=== PATIENT | male | born 1985 | race Caucasian/White ===

== ENCOUNTER 2017-04-02 09:08 | Emergency (ER) | payer MEDICAID, SELFPAY ==
[2017-04-02 09:09] VITALS: BP 147/116; PULSE 121; RESP 18; TEMP 36.3; BMI 21.4
--- NOTE | 2017-04-02 09:32 | EKG12_ITS ---
Test Reason : MEDICAL CLEARANCE Blood Pressure : / mmHG Vent. Rate : 098 BPM Atrial Rate : 098 BPM P-R Int : 154 ms QRS Dur : 092 ms QT Int : 328 ms P-R-T Axes : 076 075 068 degrees QTc Int : 418 ms Normal sinus rhythm Normal ECG Confirmed by LAURA YBARRA, AMARI ([id number]), marketing editor TAL CALLE ([id number] on 04/04/2017 1:53:52 PM Referred By: JONATHAN Confirmed By:AMARI SANCHEZ MD
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
[2017-04-02 10:11] LABS: Absolute Lymphocyte Count 1.44 X10^3/ul (0.83-4.51); Absolute Neutrophil Count 4.3 X10^3/uL (2.0-7.7); Basophil# 0.03 X10^3/uL; Basophil% 0.5 % (0-1); Eosinophil# 0.23 X10^3/uL; Eosinophils% 3.7 % (0-5); Hematocrit 42.7 % (40-54); Hemoglobin 14.4 g/dl (13.0-16.5); Lymphocyte # 1.44 X10^3/ul (4.0); Mean Corp Hgb Conc 33.7 g/gl (32-36); Mean Corpuscular Hgb 29.6 pg (27.0-32.0); Mean Corpuscular Volume 87.7 fL (80-94); Mean Platelet Vol. 10.1 fl (6.2-12.0); Monocyte# 0.25 X10^3/uL; Neutrophil # 4.29 X10^3/uL (2.7-7.7); Neutrophil % 68.6 % (47-70); Platelet Count 232 K/mm3 (150-450); RBC Distribution Width CV 14.1 % (11.6-14.6); RBC Distribution Width SD 45.4 fl (35.1-43.9); Red Blood Count 4.87 M/mm3 (4.6-6.2); White Blood Count 6.3 K/mm3 (4.4-11.0)
[2017-04-02 10:12] LABS: POSITIVE COUNT NO; POSITIVE DIFFERENTIAL NO; POSITIVE MORPHOLOGY NO
[2017-04-02 10:13] LABS: Color, Urine Yellow (Yellow); Glucose, Dipstick Normal (Normal); Ketone-Dipstick 5 mg/dl (Negative); Leukocyte Esterase-Dipstick 100 /ul (Negative); Nitrite-Dipstick Negative (Negative); Occult Blood-Urine 10 /ul (Negative); Protein-Dipstick 30 mg/dl (Negative); Specific Gravity, Urine 1.025 (1.002-1.030); Urine Bilirubin Dipstick Negative (Negative); Urine Clarity Sl. Cloudy (Clear); Urine Urobilinogen 1 mg/dl (Normal)
[2017-04-02 10:21] LABS: Bacteria 1+ /hpf (None Seen); Mucous, Urine 1+ /hpf (<or=2+); Red Blood Cells-Urine 0-5 SEEN /hpf (0-5); Squamous Epithelial Cells - UA 0-5 SEEN /hpf (0-5); White Blood Cells 10-25 SEEN /hpf (0-5)
[2017-04-02 10:30] LABS: Amphetamine Urine VISTA POSITIVE (<1000 ng/mL); Barbiturate Urine VISTA NEGATIVE (< 200 ng/mL); Benzodiazepine Urine VISTA NEGATIVE (< 200 ng/mL); Cocaine Urine VISTA NEGATIVE (< 300 ng/mL); Ecstacy Urine VISTA NEGATIVE (< 500 ng/mL); Methadone Urine VISTA NEGATIVE (< 300 ng/mL); PCP Urine VISTA NEGATIVE (< 25 ng/mL); THC Urine VISTA POSITIVE (< 50 ng/mL); Vista UDS pH Range 5
[2017-04-02 10:32] LABS: ALB/GLOB Ratio 0.9 RATIO (0.9-2.4); AST(SGOT) 25 U/L (15-37); Alanine Aminotransfer ALT/SGPT 35 U/L (16-61); Albumin, Serum 3.7 g/dL (3.2-5.0); Alkaline Phosphatase 77 U/L (45-117); Anion Gap 6 (5-15); BUN 13 mg/dL (7-18); BUN/Creat Ratio 12.4 RATIO (10-20); Calcium,Total 8.7 mg/dL (8.5-10.1); Chloride 109 mmol/L (98-107); Creatinine, Serum 1.05 mg/dL (0.70-1.30); EST Glomerular Filtration Rate 86 mL/min (>60); Est Glom Filt Rate - Afr Amer 105 mL/min (>60); Globulin 3.9 g/dL (2.2-4.2); Glucose 86 mg/dL (74-106); Potassium 3.9 mmol/L (3.5-5.1); Protein, Total 7.6 g/dL (6.4-8.2); Sodium Level 142 mmol/L (136-145); Thyroid Stim Hormone (TSH) 3.41 uIU/mL (0.358-3.74)
[2017-04-02 10:33] VITALS: BP 141/109; PULSE 99; RESP 18; O2SAT 99
[2017-04-02 10:36] LABS: Alcohol, Blood (Medical)-Serum < 3.0 mg/dL
[2017-04-02 11:02] VITALS: RESP 16
[2017-04-02 13:31] VITALS: BP 132/89; PULSE 91; RESP 18; O2SAT 100
[2017-04-02 16:40] LABS: Chlamydia Trachomatis by PCR Negative (Negative); Neisserai gonorrhoeae by PCR Negative (Negative); Probe Check PASS; Sample Adequacy Control PASS; Specimen Processing Control PASS
== END 2017-04-02 14:37 | disposition home or self-care (01) ==
PROVIDERS: Emergency Provider Emergency Medicine
DX: F32.9 Major depressive disorder, single episode, unspecified (principal); F12.90 Cannabis use, unspecified, uncomplicated; F15.90 Other stimulant use, unspecified, uncomplicated; Z72.89 Other problems related to lifestyle; Z72.0 Tobacco use
CPT/HCPCS: 36415; 80053; 80307; 80320; 81001; 84443; 85025; 87086; 87088; 87491; 87591; 93005; 99283; G0480

== ENCOUNTER 2017-04-05 08:49 | Outpatient (RCR) | payer MEDICAID, SELFPAY ==
--- NOTE | 2017-04-05 09:53 | BH.COMM ---
Communication Note - Communication with Client Communication Note: This therapist met with client to complete intake paperwork and answer client questions about IOP.
--- NOTE | 2017-04-05 15:50 | BH.SGPN ---
Service Group Progress Note - Session Psychotherapy Session #1 Date Open:: 04/05/17 Time Started:: 09:04 Time Stopped:: 10:00 Targeted Problem #:: 1 Type of Group:: Process Goal of Group:: The goal of today's group was to check-in with client's mood, stressors, and positives, review homework and introduce topic for the day. Client Response/Progress/Benefit:: Patient listened attentively to others, tended to be quiet. Patient appeared to be visibly anxious as evidenced by fidgeting with hands and feet. Patient reported he is feeling very anxious because it is his first day in the program. Also shared having some issues because he has to walk to all his appointments right now until his girlfriend moves back to the area. Pt shared this increases his pain because he has emphysema which worsens in cold weather. Patient seemed to benefit from sharing his thoughts and feelings as well as receiving support by peers. Eye Contact:: Fair Motor Activity:: Restless Appearance:: Casual Speech:: Appropriate Mood:: Anxious, Irritable, Depressed Affect:: Constricted Thoughts:: Linear, Logical, No evidence of hallucinations/delusions noted Staff Interventions:: Therapist used open-ended questions to elicit information about client's current stressors and mood state. Therapist was supportive by using active listening and reflection.
--- NOTE | 2017-04-05 16:08 | BH.MDN ---
Multi-Disciplinary Note - Note 30-min Individual Time Started:: 10:20 Date: 04/05/17 Time Stopped:: 10:45
--- NOTE | 2017-04-05 16:24 | BH.SGPN ---
Service Group Progress Note - Session Psychotherapy Session #3 Date Open:: 04/05/17 Time Started:: 11:24 Time Stopped:: 12:16 Targeted Problem #:: 1 Type of Group:: Functional Skills Development - 8 participants Goal of Group:: To rehearse resilient factors and identify ways to maintain resilience despite hardships and stressors. Staff Interventions:: Therapist led group in an activity in which group members were challenged to stay resilient despite various stressors and hardships added to activity. Therapist provided each group member with a stress ball and used stress ball as a tool to discuss factors of resilient personality. Therapist provided group members with a handout about the building blocks of resilience. Therapist provided support by using reflective listening.
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
--- NOTE | 2017-04-06 15:29 | BH.DR.ITP ---
Initial Treatment Plan - Patient Information Visit Information: ADMISSION DATE: EXPECTED LOS: 4-6 weeks Diagnoses:: Bipolar disorder - Problems/Symptoms Problem #1:: Mood symptoms Symptom:: Depression, recent suicidal ideation, anger, irritability Problem #2:: Anxiety Symptom:: rumination
--- NOTE | 2017-04-06 15:51 | BH.SGPN ---
Service Group Progress Note - Session Psychotherapy Session #3 Date Open:: 18 - 9 group members Time Started:: 11:30 Time Stopped:: 12:10 Targeted Problem #:: 1 Type of Group:: Functional Skills Development Goal of Group:: To identify specific barriers to an identified change clients would want to make and identify ways to overcome those barriers. Client Response/Progress/Benefit:: Client responded well to session, providing good insight to group discussion. Client shared making changes and overcoming barriers is difficult because it sometimes requires removing toxic people and can be overwhelming. Client did not identify a specific goal, but reported his usual barriers are negative thinking and his environment. Client helped the group identify strategies to overcome barriers such as reframing thoughts and looking at the evidence. Client appeared to benefit from using in the moment coping skills to manage anger as well as from developing strategies to overcome barriers. Client to continue IOP to promote mood stability and increase emotional regulation. Eye Contact:: Good Motor Activity:: Appropriate Appearance:: Casual Speech:: Appropriate Mood:: Anxious, Irritable - Irritable at the beginning of group, but able to regulate his emotions after taking a quick break. Affect:: Constricted Thoughts:: Linear, No evidence of hallucinations/delusions noted Staff Interventions:: Therapist facilitated discussion about what helped the group overcome challenges that came about during the experiential activity. Therapist utilized the activity as a tool in relating those experiences to ways to overcome barriers with challenges in their life when trying to make change. Therapist group into smaller groups and had them brainstorm ways to overcome certain barriers to their identified change. Therapist provided support by using reflective listening and providing feedback.
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
--- NOTE | 2017-04-09 14:11 | BH.MDN ---
Multi-Disciplinary Note - Note 45-min Individual Date: 04/09/17
--- NOTE | 2017-04-11 11:30 | BH.SGPN ---
Service Group Progress Note - Session Psychotherapy Session #1 Date Open:: 04/11/17 - 6 group members Time Started:: 09:02 Time Stopped:: 10:02 Targeted Problem #:: 1 Type of Group:: Process Goal of Group:: The goal of today's group was to check-in with client's mood, stressors, and positives and introduce topic for the day. Client Response/Progress/Benefit:: Client responded well to session, active participant and providing supportive statements to peers. Client reports feeling grateful today as client stated, I'm happy to be alive and to be thinking as positively as I am despite my situation. Client shared he has been utilizing self-care and setting boundaries with his girlfriend which client reports is beneficial to their relationship. Client stated his psychiatry appointment went well yesterday and client was prescribed Zoloft. Client appeared to benefit from supportive statements from peers and identifying positives. Client progressing as evidenced by his report of setting boundaries, but continues to struggle with dealing with people. Eye Contact:: Good Motor Activity:: Appropriate Appearance:: Casual Speech:: Appropriate Mood:: Euthymic Affect:: Constricted Thoughts:: Linear, No evidence of hallucinations/delusions noted Staff Interventions:: Therapist used open-ended questions to elicit information about client's current stressors and mood state. Therapist was supportive by using active listening and reflection. Therapist facilitated a mindfulness activity to promote emotional well-being and calmness.
--- NOTE | 2017-04-11 11:38 | BH.SGPN_ITS ---
Service Group Progress Note - Session Psychotherapy Session #1 Date Open:: 04/11/17 - 6 group members Time Started:: 09:02 Time Stopped:: 10:02 Targeted Problem #:: 1 Type of Group:: Process Goal of Group:: The goal of today's group was to check-in with client's mood, stressors, and positives and introduce topic for the day. Client Response/Progress/Benefit:: Client responded well to session, active participant and providing supportive statements to peers. Client reports feeling grateful today as client stated, I'm happy to be alive and to be thinking as positively as I am despite my situation. Client shared he has been utilizing self-care and setting boundaries with his girlfriend which client reports is beneficial to their relationship. Client stated his psychiatry appointment went well yesterday and client was prescribed Zoloft. Client appeared to benefit from supportive statements from peers and identifying positives. Client progressing as evidenced by his report of setting boundaries, but continues to struggle with ?dealing with people.? Eye Contact:: Good Motor Activity:: Appropriate Appearance:: Casual Speech:: Appropriate Mood:: Euthymic Affect:: Constricted Thoughts:: Linear, No evidence of hallucinations/delusions noted Staff Interventions:: Therapist used open-ended questions to elicit information about client's current stressors and mood state. Therapist was supportive by using active listening and reflection. Therapist facilitated a mindfulness activity to promote emotional well-being and calmness.
--- NOTE | 2017-04-11 15:50 | BH.SGPN ---
Service Group Progress Note - Session Psychotherapy Session #2 Date Open:: 04/11/17 Time Started:: 10:20 Time Stopped:: 11:13 Targeted Problem #:: 1 Type of Group:: Illness Management - 7 group members Goal of Group:: To identify within self what is keeping client trapped from achieving better quality of life. Client Response/Progress/Benefit:: Client listened attentively to others in contributed to discussion. Client connected with the quote recognizing that there are a lot of things that he does that keeps to himself from moving forward. Client identified negative thinking to be one of the most impactful things that can hold him back from connecting with others and moving towards progress. Client identified several thoughts that he recognizes holds him back. He reported a couple thoughts are: Stupidity [place] and I am not worth it. Client able to connect how his thoughts can impact the way that he acts and feels. Seemed to benefit from increasing awareness of how his thought patterns can be negatively impact his ability to make progress. Eye Contact:: Fair Motor Activity:: Appropriate Appearance:: Casual Speech:: Appropriate Mood:: Irritable, Depressed Affect:: Congruent Thoughts:: Linear, Logical, No evidence of hallucinations/delusions noted Staff Interventions:: Therapist facilitated discussion about what is keeping client?s stuck from moving toward mental wellness. Therapist assisted clients in connecting how thoughts can contribute to keeping clients stuck. Therapist led discussion about barriers clients face from making changes to help one move forward. Therapist provided support by using active listening and giving feedback to others. Psychotherapy Session #3 Date Open:: 04/11/17 Time Started:: 11:20 Time Stopped:: 12:12 Targeted Problem #:: 1 Type of Group:: Functional Skills Development - 6 group members Goal of Group:: To identify what client can do to release self from those things that are trapping them to find more peace and quality in everyday life. Eye Contact:: Fair Motor Activity:: Appropriate Appearance:: Casual Speech:: Appropriate Mood:: Euthymic Affect:: Congruent Thoughts:: Linear, Logical, No evidence of hallucinations/delusions noted Staff Interventions:: Therapist provided psychoeducation about the depression and anxiety maintenance cycle. Therapist provided group members with a worksheet in which each group member identified a negative thought and how that negative thought is impacting ability to function. Therapist assisted the group with reframing and challenging negative thought identified. Helped the group identify the positive impact of being able to challenge and reframe negative thoughts.
--- NOTE | 2017-04-12 12:44 | BH.MTP ---
Master Treatment Plan - Patient Information Program Physician:: Dr. Mccain Primary Therapist:: Iwona Pope, [facility] - Psychiatric Diagnoses Psychiatric Diagnoses:: Major disorder not otherwise specified-likely bipolar disorder. Rule out substance-induced mood disorder. PTSD. Anxiety unspecified. Cannabis use disorder. Nicotine use disorder Diagnosis Code(s):: F 32.9 - Estimated LOS Estimated LOS (in weeks):: 6 Problem/Goal #1 - Problem/Goal #1 Stated Goal:: Client will reduce depression, feelings of hopelessness, and suicidal ideation due to Major Depressive Disorder through Intensive Outpatient Program. Description of Barriers: Pt currently is staying in a homeless senior living and not having his basic needs met can be a barrier to treatment. Pt's emotional dysregulation, anger, negative thoughts, distorted thought patterns, and ruminations can be barriers to treatment progress. Functional Impact: Pt recently at [facility] emergency room for SI with plan to run into traffic. Pt's multiple life stressors contributed to pt living in his car for several months, just recently started staying at a homeless senior living. Pt's poor emotional regulation impact interpersonal relationships due to quick anger response. Pt's depressive symptoms contribute to increased negative thought patterns, decreased motivation, poor concentration, isolation which all make it more difficult to complete daily tasks. Pt's mental health symptoms also contribute to pt not being able to keep employment. Goal Relevant Strengths/Supports: Pt is resilient and expresses motivation to get better. Pt's girlfriend is a positive support for patient. - Objectives Objective #1 Stated Objective: Client will identify and replace 2-3 negative thinking patterns that reinforce depressive symptoms. Interventions: Therapist will assist client in developing an awareness of the cognitive messages that reinforce depressive thinking. Therapist will also assist client in challenging negative thinking patterns. Discharge Criteria: Client will have achieved this goal when can identify at least 2 negative thinking patterns, replace negative thinking with more positive, affirmative messages and state no longer having thoughts of hurting self. Target Date: 05/17/17 Review Date: 05/03/17 Objective #2 Stated Objective: Client will identify 3-5 physical warning signs of anger and 3-5 ways to calm and manage anger. Interventions: Therapist will assist client with identifying situations, thoughts, feelings, and actions associated with moments of anger, irritation, or disappointment. Through individual therapy and group work will help client explore warning signs to anger and ager management strategies. Discharge Criteria: Client will have met this goal when can identify at least 3 anger triggers and 3 healthy coping skills to help manage extreme emotions. Target Date: 05/17/17 Review Date: 05/03/17 Problem/Goal #2 - Problem/Goal #2 Stated Goal:: Stabilize anxiety level while increasing ability to function on daily basis. Description of Barriers: Pt currently is staying in a homeless senior living and not having his basic needs met can be a barrier to treatment. Pt's emotional dysregulation, anger, negative thoughts, distorted thought patterns, and ruminations can be barriers to treatment progress. Functional Impact: Pt recently at [facility] emergency room for SI with plan to run into traffic. Pt's multiple life stressors contributed to pt living in his car for several months, just recently started staying at a homeless senior living. Pt's poor emotional regulation impact interpersonal relationships due to quick anger response. Pt's depressive symptoms contribute to increased negative thought patterns, decreased motivation, poor concentration, isolation which all make it more difficult to complete daily tasks. Pt's mental health symptoms also contribute to pt not being able to keep employment. Goal Relevant Strengths/Supports: Pt is resilient and expresses motivation to get better. Pt's girlfriend is a positive support for patient. - Objectives Objective #1 Stated Objective: Client will learn and implement 2-3 calming skills to reduce overall anxiety and manage anxiety symptoms. Interventions: Therapist will teach client calming/relaxation skills and how to apply these skills to everyday life. Discharge Criteria: Client will have achieved this goal when can verbalize at least 2 calming strategies and have practiced techniques to help reduce anxiety. Target Date: 05/17/17 Review Date: 05/02/17
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
--- NOTE | 2017-04-19 11:36 | BH.SGPN ---
Service Group Progress Note - Session Psychotherapy Session #1 Date Open:: 04/19/17 Time Started:: 09:06 Time Stopped:: 10:20 Targeted Problem #:: 1 Type of Group:: Process - 9 participants Goal of Group:: The goal of today's group was to check-in with client's mood, stressors, and positives, review homework and introduce topic for the day. Staff Interventions:: Therapist used open-ended questions to elicit information about client's current stressors and mood state. Therapist was supportive by using active listening and reflection.
--- NOTE | 2017-04-19 13:34 | BH.SGPN_ITS ---
Service Group Progress Note - Session Psychotherapy Session #2 Date Open:: 04/19/17 - 10 group members Time Started:: 10:25 Time Stopped:: 11:15 Targeted Problem #:: 1 Type of Group:: Illness Management Goal of Group:: To increase understanding of importance of boundaries and the different ways of setting boundaries (permeable, rigid, and flexible). Client Response/Progress/Benefit:: Client responded somewhat well to session, appeared to be listening per eye contact, but appeared agitated and distracted. Client listened as the group identified the characteristics of each boundary type as well as the pros and cons. Client shared belief being rigid helps protect you from ?stupid people.?. Client appeared to benefit from learning the importance of boundary setting. Progress noted as client is learning healthy coping skills, but continues to struggle with implementing emotional regulation skills. Eye Contact:: Fair Motor Activity:: Restless Speech:: Appropriate Mood:: Anxious, Irritable Affect:: Flat Thoughts:: Racing, No evidence of hallucinations/delusions noted Staff Interventions:: Therapist facilitated group discussion about defining boundaries. Therapist led discussion about importance of boundaries, assisting group members with identifying the impact of healthy and unhealthy boundaries. Therapist educated the group about the three different ways of setting boundaries and led discussion about each one. Therapist assisted clients with identifying the costs and benefits to the three different styles of boundary setting and how each style can impact mental health as well as relationships. Psychotherapy Session #3 Date Open:: 04/19/17 - 9 group members Time Started:: 11:25 Time Stopped:: 12:20 Targeted Problem #:: 1 Type of Group:: Functional Skills Development Goal of Group:: Increase awareness of current boundary style, identifying impact current way of setting boundaries has on mental health as well as relationships. Client Response/Progress/Benefit:: Client responded somewhat well to session, agitated, but participating. Client process his boundary type with the group, sharing ?it?s all about yourself, you have to take care of you first.? Based on client?s description of his boundaries, he comes across as flexible by letting people come into his life, but client is actually rigid and is not forgiving sharing ?it?s up to them, if they burn the bridge it?s not my fault.? Client stated he has learned throughout his life that he cannot trust people. Client appeared to benefit from increasing awareness of how his boundaries impact client's mental health and relationships. Client to continue IOP to prevent decompensation and increase anger management skills. Eye Contact:: Fair Motor Activity:: Restless Appearance:: Casual Speech:: Rapid, Other - loud Mood:: Irritable Affect:: Congruent Thoughts:: Racing, No evidence of hallucinations/delusions noted Staff Interventions:: Therapist provided the group member with a wide array of supplies, asking each group member to create a castle that would represent the boundaries they currently have in place. The expressive activity was used as a tool to help increase client?s self-awareness of their boundaries. Therapist processed each group member?s castle, inquiring what style the group member currently uses most frequently and how current boundary style impacts his/her mental health and relationships. Therapist provided support by using reflective listening and giving feedback.
--- NOTE | 2017-04-20 11:18 | BH.SGPN ---
Service Group Progress Note - Session Psychotherapy Session #2 Date Open:: 04/20/17 Time Started:: 10:20 Time Stopped:: 11:10 Targeted Problem #:: 1 Type of Group:: Illness Management - 7 participants Psychotherapy Session #3 Date Open:: 04/20/17 Time Started:: 11:15 Time Stopped:: 12:08 Targeted Problem #:: 1 Type of Group:: Functional Skills Development - 5 participants
--- NOTE | 2017-04-20 14:14 | BH.MDN ---
Multi-Disciplinary Note - Note 30-min Individual Date: 04/20/17 Thoughts:: Linear, No evidence of hallucinations/delusions noted
--- NOTE | 2017-04-25 12:06 | BH.SGPN ---
Service Group Progress Note - Session Psychotherapy Session #1 Date Open:: 04/25/17 Time Started:: 09:03 Time Stopped:: 10:03 Targeted Problem #:: 1 Type of Group:: Process - 7 group members Goal of Group:: The goal of today's group was to check-in with client's mood, stressors, and positives, review homework and introduce topic for the day. Client Response/Progress/Benefit:: Client reported he had a really bad weekend because his girlfriend had a miscarriage on Sunday. Client expressed still trying to process everything because it happened so fast and the only had known for less than 2 weeks that she was . Client reported feeling sad this morning but recognizes its importance for him to get out of bed and not use sleep as his coping skill which she had done for a couple days. Client seemed to benefit from support from peers. Eye Contact:: Fair Motor Activity:: Restless Appearance:: Casual Speech:: Appropriate Mood:: Depressed Affect:: Flat Thoughts:: Linear, No evidence of hallucinations/delusions noted Staff Interventions:: Therapist used open-ended questions to elicit information about client's current stressors and mood state. Therapist was supportive by using active listening and reflection.
--- NOTE | 2017-04-25 12:45 | BH.MTP_ITS ---
Master Treatment Plan - Patient Information Program Physician:: Dr. Mccain Primary Therapist:: Iwona Pope, [facility] - Psychiatric Diagnoses Psychiatric Diagnoses:: Major disorder not otherwise specified-likely bipolar disorder. Rule out substance-induced mood disorder. PTSD. Anxiety unspecified. Cannabis use disorder. Nicotine use disorder Diagnosis Code(s):: F 32.9 - Estimated LOS Estimated LOS (in weeks):: 6 Problem/Goal #1 - Problem/Goal #1 Stated Goal:: Client will reduce depression, feelings of hopelessness, and suicidal ideation due to Major Depressive Disorder through Intensive Outpatient Program. Description of Barriers: Pt currently is staying in a homeless alf and not having his basic needs met can be a barrier to treatment. Pt's emotional dysregulation, anger, negative thoughts, distorted thought patterns, and ruminations can be barriers to treatment progress. Functional Impact: Pt recently at [facility] emergency room for SI with plan to run into traffic. Pt's multiple life stressors contributed to pt living in his car for several months, just recently started staying at a homeless alf. Pt's poor emotional regulation impact interpersonal relationships due to quick anger response. Pt's depressive symptoms contribute to increased negative thought patterns, decreased motivation, poor concentration, isolation which all make it more difficult to complete daily tasks. Pt's mental health symptoms also contribute to pt not being able to keep employment. Goal Relevant Strengths/Supports: Pt is resilient and expresses motivation to get better. Pt's girlfriend is a positive support for patient. - Objectives Objective #1 Stated Objective: Client will identify and replace 2-3 negative thinking patterns that reinforce depressive symptoms. Interventions: Therapist will assist client in developing an awareness of the cognitive messages that reinforce depressive thinking. Therapist will also assist client in challenging negative thinking patterns. Discharge Criteria: Client will have achieved this goal when can identify at least 2 negative thinking patterns, replace negative thinking with more positive , affirmative messages and state no longer having thoughts of hurting self. Target Date: 05/17/17 Review Date: 05/03/17 Objective #2 Stated Objective: Client will identify 3-5 physical warning signs of anger and 3 -5 ways to calm and manage anger. Interventions: Therapist will assist client with identifying situations, thoughts, feelings, and actions associated with moments of anger, irritation, or disappointment. Through individual therapy and group work will help client explore warning signs to anger and ager management strategies. Discharge Criteria: Client will have met this goal when can identify at least 3 anger triggers and 3 healthy coping skills to help manage extreme emotions. Target Date: 05/17/17 Review Date: 05/03/17 Problem/Goal #2 - Problem/Goal #2 Stated Goal:: Stabilize anxiety level while increasing ability to function on daily basis. Description of Barriers: Pt currently is staying in a homeless alf and not having his basic needs met can be a barrier to treatment. Pt's emotional dysregulation, anger, negative thoughts, distorted thought patterns, and ruminations can be barriers to treatment progress. Functional Impact: Pt recently at [facility] emergency room for SI with plan to run into traffic. Pt's multiple life stressors contributed to pt living in his car for several months, just recently started staying at a homeless alf. Pt's poor emotional regulation impact interpersonal relationships due to quick anger response. Pt's depressive symptoms contribute to increased negative thought patterns, decreased motivation, poor concentration, isolation which all make it more difficult to complete daily tasks. Pt's mental health symptoms also contribute to pt not being able to keep employment. Goal Relevant Strengths/Supports: Pt is resilient and expresses motivation to get better. Pt's girlfriend is a positive support for patient. - Objectives Objective #1 Stated Objective: Client will learn and implement 2-3 calming skills to reduce overall anxiety and manage anxiety symptoms. Interventions: Therapist will teach client calming/relaxation skills and how to apply these skills to everyday life. Discharge Criteria: Client will have achieved this goal when can verbalize at least 2 calming strategies and have practiced techniques to help reduce anxiety. Target Date: 05/17/17 Review Date: 05/02/17
--- NOTE | 2017-04-25 13:59 | BH.SGPN_ITS ---
Service Group Progress Note - Session Psychotherapy Session #2 Date Open:: 04/25/17 group members Time Started:: 10:17 Time Stopped:: 11:15 Targeted Problem #:: 1 Type of Group:: Illness Management Goal of Group:: To increase understanding of what stress is, identify current life stressors, and connect impact stressors have on mental health. Client Response/Progress/Benefit:: Client responded well to session, quiet, but participating when prompted. Client appeared to connect with the quote sharing, ?what matters is how we respond to stress.? Client helped the group process eustress versus unhealthy, chronic stress. Client shared some stress is good as it can increase awareness and motivation. However, client expressed anxiety and depression can increase the change of having chronic stress which negatively impacts mental and physical health. Client identified his stressors as insecurities, homelessness, relationships, and ?stupid people.? Client stated, ? encounters with stupid people? is often what ?sends me over the edge.? With therapist elicitation, client acknowledged he can better manage his stress to that when his interactions with others is unpleasant he can still cope. Client shared when his stress is too high he becomes angry and has increased crying spells. Client appeared to benefit from gaining awareness of his personal stressors and how stress impacts mental health. Client seems to be progressing as shown by his increases insight, but can continue to benefit from implementing impulse control strategies. Eye Contact:: Poor Motor Activity:: Restless Appearance:: Casual Speech:: Soft Mood:: Irritable, Dysthymic Affect:: Flat Thoughts:: Linear, No evidence of hallucinations/delusions noted Staff Interventions:: Therapist facilitated discussion about stress. Therapist facilitated an activity in which group members were asked to identify various stressors they have in their life currently. Therapist instructed group members to indicate if certain stressors were larger than others. Therapist led processing of each member?s stress jar and helped them connect impact the stress has on their mental health. Psychotherapy Session #3 Date Open:: 04/25/17 group members Time Started:: 11:25 Time Stopped:: 12:15 Targeted Problem #:: 1 Type of Group:: Functional Skills Development Goal of Group:: To identify what stressors have control over and what stressors have no control over. Another goal was to increase repertoire of healthy strategies to help manage stress. Client Response/Progress/Benefit:: Client responded well to session, engaged in activity and discussion. Client appeared to connect with the activity stating, ? you need teamwork and different perspectives to manage stress.? Client shared it is important to focus on stressors in his control rather than ?waste? energy trying to manage stressors he cannot change. Client helped the group develop stress management strategies including communicating emotions with supports, being aware of warning signs, taking small steps, and deep breathing. Client appeared to benefit from increasing his repertoire of stress reduction techniques as well as using in the moment coping skills. Client seems to be progressing as shown by his report of increased awareness of stressors, but can continue to benefit from utilizing healthy coping skills proactively. Eye Contact:: Good Motor Activity:: Appropriate Appearance:: Casual Speech:: Appropriate Mood:: Euthymic Affect:: Full - smiling and laughing with peers Thoughts:: Linear, No evidence of hallucinations/delusions noted Staff Interventions:: Therapist facilitated discussion about control versus no control and helped group members connect the concept to stressors. Therapist led discussion about importance of putting forth more energy on those stressors they can control. Therapist led an activity aimed at inducing stress to help clients use in the moment coping strategies and support. Therapist facilitated brainstorming of strategies to help manage stress level. Therapist provided support by using active listening and providing feedback.
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
--- NOTE | 2017-04-26 14:17 | BH.SGPN ---
Service Group Progress Note - Session Psychotherapy Session #2 Date Open:: 04/26/17 group members Time Started:: 10:12 Time Stopped:: 11:06 Targeted Problem #:: 1 Type of Group:: Illness Management Goal of Group:: To increase understanding of mindfulness and explore the benefits of mindfulness and what thoughts are prohibiting group members to stay in the present. Client Response/Progress/Benefit:: Client responded somewhat well to session, quiet and irritable, but participating in mindfulness activities. Client identified mindfulness as being in the moment. Client helped group identify the benefits of mindfulness such as less anxiety and better physical health. Client connected with peers on the topic of mindlessness or autopilot and how ones thoughts can impact mood and behavior. Client reported he can utilize mindfulness in his daily life to reduce stress. Client appeared to benefit from learning more about the benefits of mindfulness and learning new mindfulness skills. Client showing progress with utilizing in the moment coping strategies to reduce agitation in group, but can continue to benefit from being aware of how his tone of voice and remarks impact others in the group as client made a comment that upset a peer. Eye Contact:: Fair Motor Activity:: Restless - AEB leg shaking Appearance:: Casual Speech:: Appropriate Mood:: Irritable Affect:: Constricted Thoughts:: Linear, No evidence of hallucinations/delusions noted Staff Interventions:: Therapist provided each group member with a worksheet to complete that asked questions about possible stressors and overwhelming thoughts that take up their attention and assist client in redirecting thoughts by completing an activity. Therapist led the processing of the worksheet and activity, helping clients connect how negative thoughts can impact them. Therapist provided support by using active listening and providing feedback. Psychotherapy Session #3 Date Open:: 04/26/17 - 6 group members Time Started:: 11:25 Time Stopped:: 12:20 Targeted Problem #:: 1 Type of Group:: Functional Skills Development Goal of Group:: To identify the impact that negative thinking patterns has had on group members lives and how using mindfulness techniques and coping strategies can assist group members in managing overwhelming thoughts and feelings. Client Response/Progress/Benefit:: Client responded somewhat well to session, restless and appeared distracted, but participating when promoted. Client participated in the discussion of reason mind, emotion mind, and jones mind and shared when one uses emotion mind you act on impulse. Client created a visual reminder of mindfulness skills including 5-4-3-2-1, deep breathing, and several personal statements to encourage client to live in the moment. Client appeared to benefit from increasing awareness of the benefits of jones mind. Client to continue IOP to prevent decompensation and promote emotional regulation. Eye Contact:: Avoidant Motor Activity:: Restless - AEB leg shaking Appearance:: Casual Speech:: Rapid Mood:: Irritable Affect:: Constricted Thoughts:: Racing, No evidence of hallucinations/delusions noted Staff Interventions:: Therapist facilitated discussion about mindfulness and the benefits mindfulness can have. Therapist led group in an experiential activity in which clients would practice techniques such as breathing mindfully, and body scans. Therapist led the processing of the activity and assisted clients in connecting how when faced with overwhelming thoughts or negative self-talk can be disruptive to daily functioning.
--- NOTE | 2017-04-27 14:21 | BH.SGPN_ITS ---
Service Group Progress Note - Session Psychotherapy Session #2 Date Open:: 04/26/17 group members Time Started:: 10:12 Time Stopped:: 11:06 Targeted Problem #:: 1 Type of Group:: Illness Management Goal of Group:: To increase understanding of mindfulness and explore the benefits of mindfulness and what thoughts are prohibiting group members to stay in the present. Client Response/Progress/Benefit:: Client responded somewhat well to session, quiet and irritable, but participating in mindfulness activities. Client identified mindfulness as ?being in the moment.? Client helped group identify the benefits of mindfulness such as less anxiety and better physical health. Client connected with peers on the topic of ?mindlessness? or autopilot and how one?s thoughts can impact mood and behavior. Client reported he can utilize mindfulness in his daily life to reduce stress. Client appeared to benefit from learning more about the benefits of mindfulness and learning new mindfulness skills. Client showing progress with utilizing in the moment coping strategies to reduce agitation in group, but can continue to benefit from being aware of how his tone of voice and remarks impact others in the group as client made a comment that upset a peer. Eye Contact:: Fair Motor Activity:: Restless - AEB leg shaking Appearance:: Casual Speech:: Appropriate Mood:: Irritable Affect:: Constricted Thoughts:: Linear, No evidence of hallucinations/delusions noted Staff Interventions:: Therapist provided each group member with a worksheet to complete that asked questions about possible stressors and overwhelming thoughts that take up their attention and assist client in redirecting thoughts by completing an activity. Therapist led the processing of the worksheet and activity, helping client?s connect how negative thoughts can impact them. Therapist provided support by using active listening and providing feedback. Psychotherapy Session #3 Date Open:: 04/26/17 - 6 group members Time Started:: 11:25 Time Stopped:: 12:20 Targeted Problem #:: 1 Type of Group:: Functional Skills Development Goal of Group:: To identify the impact that negative thinking patterns has had on group member?s lives and how using mindfulness techniques and coping strategies can assist group members in managing overwhelming thoughts and feelings. Client Response/Progress/Benefit:: Client responded somewhat well to session, restless and appeared distracted, but participating when promoted. Client participated in the discussion of reason mind, emotion mind, and jones mind and shared when one uses emotion mind ?you act on impulse.? Client created a visual reminder of mindfulness skills including 5-4-3-2-1, deep breathing, and several personal statements to encourage client to live in the moment. Client appeared to benefit from increasing awareness of the benefits of jones mind. Client to continue IOP to prevent decompensation and promote emotional regulation. Eye Contact:: Avoidant Motor Activity:: Restless - AEB leg shaking Appearance:: Casual Speech:: Rapid Mood:: Irritable Affect:: Constricted Thoughts:: Racing, No evidence of hallucinations/delusions noted Staff Interventions:: Therapist facilitated discussion about mindfulness and the benefits mindfulness can have. Therapist led group in an experiential activity in which client?s would practice techniques such as breathing mindfully , and body scans. Therapist led the processing of the activity and assisted clients in connecting how when faced with overwhelming thoughts or negative self -talk can be disruptive to daily functioning.
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
--- NOTE | 2017-05-02 12:10 | BH.SGPN ---
Service Group Progress Note - Session Psychotherapy Session #1 Date Open:: 18 - 8 group members Time Started:: 09:06 Time Stopped:: 10:15 Targeted Problem #:: 1 Type of Group:: Process Goal of Group:: The goal of today's group was to check-in with client's mood, stressors, and positives, and review homework. Client Response/Progress/Benefit:: Client responded somewhat well to session, agitated, but actively listening to peers. Client reports feeling pissed off today as client is still living [facility] without any progress moving up the housing list. Client expressed he is frustrated with the system and workers they are running me around in circles. Therapist and client discussed how focusing on therapy and managing emotions is extremely challenging if one's basic needs are not met. Client reported himself from the halfway and cooling off will be most beneficial for his mental health today. Client appeared to benefit from verbalizing his emotions and receiving supportive statements from peers. Client to contact [employer] regarding housing today and continue IOP to prevent decompensation. Eye Contact:: Intense Motor Activity:: Restless Appearance:: Casual Speech:: Rapid - inappropriate language at times Mood:: Irritable, Other - agitated Affect:: Congruent Thoughts:: Logical, No evidence of hallucinations/delusions noted Staff Interventions:: Therapist used open-ended questions to elicit information about client's current stressors and mood state. Therapist was supportive by using active listening and reflection. Therapist validated client's emotions and allowed client to vent about recent housing issues. Therapist to follow up with resources for client.
--- NOTE | 2017-05-02 12:23 | BH.SGPN_ITS ---
Service Group Progress Note - Session Psychotherapy Session #1 Date Open:: 18 - 8 group members Time Started:: 09:06 Time Stopped:: 10:15 Targeted Problem #:: 1 Type of Group:: Process Goal of Group:: The goal of today's group was to check-in with client's mood, stressors, and positives, and review homework. Client Response/Progress/Benefit:: Client responded somewhat well to session, agitated, but actively listening to peers. Client reports feeling pissed off today as [facility] without any progress moving up the housing list. Client expressed he is frustrated with the system and workers they are running me around in circles. Therapist and client discussed how focusing on therapy and managing emotions is extremely challenging if one's basic needs are not met. Client reported [facility] and cooling off will be most beneficial for his mental health today. Client appeared to benefit from verbalizing his emotions and receiving supportive statements from peers. Client to contact [employer] regarding housing today and continue IOP to prevent decompensation. Eye Contact:: Intense Motor Activity:: Restless Appearance:: Casual Speech:: Rapid - inappropriate language at times Mood:: Irritable, Other - agitated Affect:: Congruent Thoughts:: Logical, No evidence of hallucinations/delusions noted Staff Interventions:: Therapist used open-ended questions to elicit information about client's current stressors and mood state. Therapist was supportive by using active listening and reflection. Therapist validated client's emotions and allowed client to vent about recent housing issues. Therapist to follow up with resources for client.
--- NOTE | 2017-05-03 14:18 | BH.MDN ---
Multi-Disciplinary Note - Note 30-min Individual Date: 05/03/17
--- NOTE | 2017-05-03 15:34 | BH.SGPN ---
Service Group Progress Note - Session Psychotherapy Session #3 Date Open:: 05/03/17 Time Started:: 11:20 Time Stopped:: 12:10 Targeted Problem #:: 1 Type of Group:: Functional Skills Development - 7 participants Goal of Group:: To identify specific barriers to an identified change clients would want to make and identify ways to overcome those barriers. Staff Interventions:: Therapist facilitated discussion about what helped the group overcome challenges that came about during the experiential activity. Therapist utilized the activity as a tool in relating those experiences to ways to overcome barriers with challenges in their life when trying to make change. Therapist group into smaller groups and had them brainstorm ways to overcome certain barriers to their identified change. Therapist provided support by using reflective listening and providing feedback.
[2017-05-25 15:38] VITALS: BP 117/72; PULSE 82; RESP 12
== END 2017-05-05 23:59 ==
LOC: BHIOP 08:49
PROVIDERS: Visit Provider Psychiatry & Neurology Psychiatry
DX: F32.9 Major depressive disorder, single episode, unspecified (principal); F43.10 Post-traumatic stress disorder, unspecified; F41.9 Anxiety disorder, unspecified; F12.20 Cannabis dependence, uncomplicated; F17.210 Nicotine dependence, cigarettes, uncomplicated
CPT/HCPCS: 90836; 99204; H0035; H2012; H2020; T1002; 90832; 90834

== ENCOUNTER 2017-05-08 09:00 | Outpatient (RCR) | payer MEDICAID, SELFPAY ==
[2017-05-06 00:14] VITALS: PULSE 82; RESP 12
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
--- NOTE | 2017-05-08 15:45 | BH.COMM ---
Communication Note - Communication with Client Communication Note: Call to [facility] to check on status of pt. Per Jane pt has not shown for admission. Call and VM left with patient regarding his status. Phoned fiance at [facility] who states that she is not at the prison. Phone to [facility] which he reportedly was staying. Per staff he no longer lives there. Pt denied any active suicidal ideations, plan, or intent when he left [facility] this afternoon therefore was not held agaisnt will or police notified. Pt was future-oriented and agreeable to voluntary admission for treatment. Due to not following through with plan I'm Fearful that if symptoms are not addressed they will worsen to the point of active SI. Left message with staff at [facility] to have fiance call if she enters prison. Call to [facility]. Gave them information regrding pt to conduct wellness check.
--- NOTE | 2017-05-08 16:00 | BH.COMM_ITS ---
Communication Note - Communication with Client Communication Note: Call to Jane Cordon to check on status of pt. Per Jane pt has not shown for admission. Call and VM left with patient regarding his status. Phoned fiance at [facility] who states that she is not at the skilled nursing. Phone to [facility] [employer] which he reportedly was staying. Per staff he no longer lives there. Pt denied any active suicidal ideations, plan, or intent when he left [facility] this afternoon therefore was not held agaisnt will or police notified. Pt was future-oriented and agreeable to voluntary admission for treatment. Due to not following through with plan I'm Fearful that if symptoms are not addressed they will worsen to the point of active SI. Left message with staff at [facility] to have fiance call if she enters skilled nursing. Call to [facility]. Gave them information regrding pt to conduct wellness check.
--- NOTE | 2017-05-09 08:10 | BH.COMM ---
Communication Note - Communication with Client Communication Note: Recieved call last evening around [address] [facility] stating that pt had arrived for admission and was sent to psychiatric floor. Per staff pt refused to sign voluntary admission due to the unit's cell phone policies. Staff reports that pt was present with fiance and friend. After discussion about the policy pt elected to leave with support and declined admission.
--- NOTE | 2017-05-09 08:15 | BH.COMM_ITS ---
Communication Note - Communication with Client Communication Note: Recieved call last evening around 1700 from [facility] stating that pt had arrived for admission and was sent to psychiatric floor. Per staff pt refused to sign voluntary admission due to the unit's cell phone policies. Staff reports that pt was present with fiance and friend. After discussion about the policy pt elected to leave with support and declined admission.
--- NOTE | 2017-05-09 09:51 | BH.COMM ---
Communication Note - Communication with Client Communication Note: Pt called in. Currently safe. Denies any SI, plan, or intent. Denies any HI. Calm over the phone. Confirmed the reason that he left [facility] psych unit prior to admission was related to cell phone policy. Blaming [facility] staff and policies. Takes no responsibility for his actions and decisions. Did not show again for IOP this AM which means he has only attended 1 day in two weeks. Lost call during conversation with pt, unclear if intentional or reception clerk issues. Made call to [facility] and spoke with Gilma Velasquez. Discussed current issues and lack of progress and attendance with IOP. Crisis agreed to follow up with pt as they are familiar with him. Will discuss with treatment team about discharge as pt is not following through with IOP requirements, attendance, and recommendations. Shows up sporadically typically when in need, walks out of groups, and does not appear to be motivated to be in the program. Staff has been accomodating due to pt's stressors however it is becoming clear he requires individual counseling and case management to help with basic needs.
--- NOTE | 2017-05-09 11:54 | BH.COMM_ITS ---
Communication Note - Communication with Client Communication Note: Pt called in. Currently safe. Denies any SI, plan, or intent. Denies any HI. Calm over the phone. Confirmed the reason that he left [facility] psych unit prior to admission was related to cell phone policy. Blaming [facility] staff and policies. Takes no responsibility for his actions and decisions. Did not show again for IOP this AM which means he has only attended 1 day in two weeks. Lost call during conversation with pt, unclear if intentional or veterinary receptionist issues. Made call to [facility] and spoke with Gilma Velasquez. Discussed current issues and lack of progress and attendance with IOP. Crisis agreed to follow up with pt as they are familiar with him. Will discuss with treatment team about discharge as pt is not following through with IOP requirements, attendance, and recommendations. Shows up sporadically typically when in need, walks out of groups, and does not appear to be motivated to be in the program. Staff has been accomodating due to pt's stressors however it is becoming clear he requires individual counseling and case management to help with basic needs.
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
== END 2017-05-10 14:00 | disposition home or self-care (01) ==
LOC: BHIOP 09:00
PROVIDERS: Visit Provider Psychiatry & Neurology Psychiatry
DX: F32.9 Major depressive disorder, single episode, unspecified (principal); F41.9 Anxiety disorder, unspecified; F43.10 Post-traumatic stress disorder, unspecified; F12.20 Cannabis dependence, uncomplicated; F17.210 Nicotine dependence, cigarettes, uncomplicated; Z79.899 Other long term (current) drug therapy
CPT/HCPCS: H0035; 90837

== ENCOUNTER 2017-07-04 08:30 | Outpatient (RCR) | payer MEDICAID, SELFPAY ==
--- NOTE | 2017-07-04 14:35 | BH.SGPN ---
Service Group Progress Note - Session Psychotherapy Session #2 Date Open:: 07/04/17 - 10 group members Time Started:: 10:20 Time Stopped:: 11:15 Targeted Problem #:: 1 Type of Group:: Illness Management Goal of Group:: To increase understanding of resilience and identify the factors that contribute to building resilience. Client Response/Progress/Benefit:: Client responded somewhat well to session, engaged during activity, but withdrawn during discussion. Client appeared to connect the activity back to life sharing, I need to juggle my life better. Client agreed with peers' definitions of resilience. Client helped the group identify the factors the contribute to building resilience and stated it is important to use supportive connections. Client appeared to benefit from increasing his understanding of resilience.Progress limited as it is client's first day. Client to continue IOP to prevent decompensation. Eye Contact:: Fair Motor Activity:: Appropriate Appearance:: Casual Speech:: Soft Mood:: Irritable, Dysthymic Affect:: Flat Thoughts:: Linear, Logical, No evidence of hallucinations/delusions noted Staff Interventions:: Therapist led group in an activity that would induce a chaotic environment and used the activity as a tool in discussing the various stressors people are faced with each day. Therapist facilitated group discussion about resilience and explained the factors of building resilience. Therapist led discussion about factors that contribute to resilience. Therapist provided support by using active listening and providing feedback. Psychotherapy Session #3 Date Open:: 07/04/17 - 9 group members Time Started:: 11:25 Time Stopped:: 12:15 Targeted Problem #:: 1 Type of Group:: Functional Skills Development Goal of Group:: To rehearse resilient factors and identify ways to maintain resilience despite hardships and stressors. Client Response/Progress/Benefit:: Client entered session alert and oriented, somewhat disconnected during discussion as evidenced by his head being down. Client shared he struggles with identifying how he is resilient and reported he needs to improve all the resilience factors. However, with group and therapist feedback, client recognized getting help and not giving up demonstrates resilience. Client appeared to benefit from increasing awareness of how he can become more resilient. To continue IOP to promote mood stability and reduce mental health symptoms. Eye Contact:: Poor - head down at times Motor Activity:: Slowed Appearance:: Casual Speech:: Soft Mood:: Irritable, Dysthymic Affect:: Flat Thoughts:: Linear, Logical, No evidence of hallucinations/delusions noted Staff Interventions:: Therapist led group in an activity in which group members were challenged to stay resilient despite various stressors and hardships added to activity. Therapist provided each group member with a stress ball and used stress ball as a tool to discuss factors of resilient personality. Therapist provided group members with a handout about the building blocks of resilience. Therapist provided support by using reflective listening.
--- NOTE | 2017-07-04 15:16 | BH.SGPN ---
Service Group Progress Note - Session Psychotherapy Session #1 Date Open:: 07/04/17 Time Started:: 09:10 Time Stopped:: 10:10 Targeted Problem #:: 1 Type of Group:: Process - 10 Group members Goal of Group:: The goal of today's group was to check-in with client's mood, stressors, and positives, review homework and introduce topic for the day. Client Response/Progress/Benefit:: Client appeared anxious and agitated AEB shaking leg and being fidgety throughout group. Client reported feeling on edge and fidgety, having hard time sitting still. Client shared he just wants to get back to being able to function. Client's first day in IOP seemed to benefit from support by peers. Eye Contact:: Fair Motor Activity:: Restless Appearance:: Casual Speech:: Appropriate Mood:: Anxious, Irritable, Depressed Affect:: Constricted Thoughts:: Linear, No evidence of hallucinations/delusions noted Staff Interventions:: Therapist used open-ended questions to elicit information about client's current stressors and mood state. Therapist was supportive by using active listening and reflection.
--- NOTE | 2017-07-04 16:01 | BH.MTP ---
Master Treatment Plan - Patient Information Program Physician:: Dr. Mccain Primary Therapist:: Iwona Pope, [facility] - Psychiatric Diagnoses Psychiatric Diagnoses:: Major depressive disorder -rule out bipolar disorder/rule out psychotic disorder. PTSD. Anxiety unspecified. Cannabis use disorder. Nicotine use disorder Diagnosis Code(s):: F 33.1 - Estimated LOS Estimated LOS (in weeks):: 6 Problem/Goal #1 - Problem/Goal #1 Stated Goal:: Client will decrease depression, irritability, and suicidal ideation due to Major Depression Disorder through Intensive Outpatient Program. Description of Barriers: Client has hx of inconsistent attendance which has resulted in early discharge from [facility] in the past. Client's irritability, emotional dysregulation, distorted thought patterns, currently homeless (living in correction) and psychosocial stressors are additional potential barriers to treatment. Functional Impact: Client's mental health symptoms impact his ability to complete daily responsbilities and tasks. Client reports history of unable to keep a job for very long due to client being unable to manage his depression and anxiety which leads client to quitting. Client reports his relationships are also impacted negatively. Client not funcitoning at baseline and has frequent thoughts of . Goal Relevant Strengths/Supports: Client is resilient and reports motivation to get better. - Objectives Objective #1 Stated Objective: Identify and replace 3-4 negative thinking patterns that reinforce depressive symptoms. Interventions: Therapist will help client identify distorted thought patterns and replace those thoughts with rational messages. Therapist will provide psychoeducation about cognitive triangle and how thoughts, emotions and feelings are connected. Discharge Criteria: Client will have achieved this goal when can identify at least 3 negative thought patterns and replace those messages with rational messages. Target Date: 08/15/17 Review Date: 08/01/17 Objective #2 Stated Objective: Client will increase emotional regulation by identifying 3-4 healthy coping skills to manage intense emotions. Interventions: Therapist will help client identify triggers and warning signs that could result in high emotional response. Therapist will teach various healthy coping strategies to help manage elevated emotions. Discharge Criteria: Client will have met this goal when he can identify at least 3 healthy coping strategies to help manage elevated moods and utilize those skills on a consistent basis. Target Date: 08/15/17 Review Date: 08/01/17 Problem/Goal #2 - Problem/Goal #2 Stated Goal:: Stabilize anxiety level while increasing ability to function on daily basis. Description of Barriers: Client has hx of inconsistent attendance which has resulted in early discharge from [facility] in the past. Client's irritability, emotional dysregulation, distorted thought patterns, and psychosocial stressors are additional potential barriers to treatment. Functional Impact: Client's mental health symptoms impact his ability to complete daily responsbilities and tasks. Client reports history of unable to keep a job for very long due to client being unable to manage his depression and anxiety which leads client to quitting. Client reports his relationships are also impacted negatively. Client not funcitoning at baseline and has frequent thoughts of . Goal Relevant Strengths/Supports: Client is resilient and reports motivation to get better. - Objectives Objective #1 Stated Objective: Client will learn and implement 2-3 calming skills to reduce overall anxiety and manage anxiety symptoms. Interventions: Therapist will teach client calming/relaxation skills and how to apply these skills to everyday life. Discharge Criteria: Client will have achieved this goal when can verbalize at least 2 calming strategies and have practiced techniques to help reduce anxiety. Target Date: 08/15/17 Review Date: 08/01/17
--- NOTE | 2017-07-05 09:21 | BH.COMM ---
Communication Note - Communication with Client Communication Note: Unable to attend IOP today due to emergency with his roomate. Plan is to attend tomorrow.
--- NOTE | 2017-07-06 09:15 | BH.COMM ---
Communication Note - Communication with Client Communication Note: Pt stopped into program 15 minutes late stating that he was unable to attend the program today. He reports that he had just gotten word that he has the ability to obtain an apartment and has to sign the leasing paperwork this AM. He reports being happy and does not want to miss this oppurtunity. He apologized. Unable to met with psychiatrist today. Housing has been a significant stressor for pt and is an important step in stabilization therefore a priority. Plan is to attend group next business day.
--- NOTE | 2017-07-30 12:02 | BH.MTP_ITS ---
Master Treatment Plan - Patient Information Program Physician:: Dr. Mccain Primary Therapist:: Iwona Pope, [facility] - Psychiatric Diagnoses Psychiatric Diagnoses:: Major depressive disorder -rule out bipolar disorder/ rule out psychotic disorder. PTSD. Anxiety unspecified. Cannabis use disorder. Nicotine use disorder Diagnosis Code(s):: F 33.1 - Estimated LOS Estimated LOS (in weeks):: 6 Problem/Goal #1 - Problem/Goal #1 Stated Goal:: Client will decrease depression, irritability, and suicidal ideation due to Major Depression Disorder through Intensive Outpatient Program. Description of Barriers: Client has hx of inconsistent attendance which has resulted in early discharge from [facility] in the past. Client's irritability, emotional dysregulation, distorted thought patterns, currently homeless (living in intermediate) and psychosocial stressors are additional potential barriers to treatment. Functional Impact: Client's mental health symptoms impact his ability to complete daily responsbilities and tasks. Client reports history of unable to keep a job for very long due to client being unable to manage his depression and anxiety which leads client to quitting. Client reports his relationships are also impacted negatively. Client not funcitoning at baseline and has frequent thoughts of . Goal Relevant Strengths/Supports: Client is resilient and reports motivation to get better. - Objectives Objective #1 Stated Objective: Identify and replace 3-4 negative thinking patterns that reinforce depressive symptoms. Interventions: Therapist will help client identify distorted thought patterns and replace those thoughts with rational messages. Therapist will provide psychoeducation about cognitive triangle and how thoughts, emotions and feelings are connected. Discharge Criteria: Client will have achieved this goal when can identify at least 3 negative thought patterns and replace those messages with rational messages. Target Date: 08/15/17 Review Date: 08/01/17 Objective #2 Stated Objective: Client will increase emotional regulation by identifying 3-4 healthy coping skills to manage intense emotions. Interventions: Therapist will help client identify triggers and warning signs that could result in high emotional response. Therapist will teach various healthy coping strategies to help manage elevated emotions. Discharge Criteria: Client will have met this goal when he can identify at least 3 healthy coping strategies to help manage elevated moods and utilize those skills on a consistent basis. Target Date: 08/15/17 Review Date: 08/01/17 Problem/Goal #2 - Problem/Goal #2 Stated Goal:: Stabilize anxiety level while increasing ability to function on daily basis. Description of Barriers: Client has hx of inconsistent attendance which has resulted in early discharge from [facility] in the past. Client's irritability, emotional dysregulation, distorted thought patterns, and psychosocial stressors are additional potential barriers to treatment. Functional Impact: Client's mental health symptoms impact his ability to complete daily responsbilities and tasks. Client reports history of unable to keep a job for very long due to client being unable to manage his depression and anxiety which leads client to quitting. Client reports his relationships are also impacted negatively. Client not funcitoning at baseline and has frequent thoughts of . Goal Relevant Strengths/Supports: Client is resilient and reports motivation to get better. - Objectives Objective #1 Stated Objective: Client will learn and implement 2-3 calming skills to reduce overall anxiety and manage anxiety symptoms. Interventions: Therapist will teach client calming/relaxation skills and how to apply these skills to everyday life. Discharge Criteria: Client will have achieved this goal when can verbalize at least 2 calming strategies and have practiced techniques to help reduce anxiety. Target Date: 08/15/17 Review Date: 08/01/17
== END 2017-07-05 23:59 ==
LOC: BHIOP 08:30
PROVIDERS: Visit Provider Psychiatry & Neurology Psychiatry
DX: F33.1 Major depressive disorder, recurrent, moderate (principal); F43.10 Post-traumatic stress disorder, unspecified; F41.9 Anxiety disorder, unspecified; F12.10 Cannabis abuse, uncomplicated
CPT/HCPCS: H2020

== ENCOUNTER 2017-07-09 09:00 | Outpatient (RCR) | payer MEDICAID, SELFPAY ==
--- NOTE | 2017-07-09 09:00 | DT_ITS ---
This patient was seen during an EMR downtime July 09, 2017 - July 16, 2017. This patient may have a combination of paper and electronic documentation or all paper documentation. All documentation is viewable within the e-chart portion of [facility] for each patient visit.
--- NOTE | 2017-07-09 15:14 | BH.SGPN ---
Service Group Progress Note - Session Psychotherapy Session #1 Date Open:: 07/09/17 Time Started:: 09:07 Time Stopped:: 10:20 Targeted Problem #:: 1 Type of Group:: Process - 9 participants Goal of Group:: The goal of today's group was to check-in with clients and review homework from previous group session. Client Response/Progress/Benefit:: Client receptive to session and was an active participant throughout. He shared insights and provided feedback and encouragement as fellow participants discussed with the group. Client indicated being anxious today as he is both excited and nervous to finally be getting keys to his own apartment. Client additionally shared working with his outpatient provider on cognitive processing for managing his PTSD symptoms. Client shared he has been prompted to write a one page paper describing why he thinks he has PTSD which Client believes may also be contributing to his anxiety levels. He benefited from processing ways to prepare himself mentally prior to beginning the assignment and displayed progress in receptivity of participants feedback. Client recommended continued IOP to prevent decompensation and continue to work on health coping and emotion regulation skills. Eye Contact:: Fair Motor Activity:: Appropriate Appearance:: Casual Speech:: Appropriate Mood:: Anxious Affect:: Constricted Thoughts:: Linear, Logical, No evidence of hallucinations/delusions noted Staff Interventions:: Therapist facilitated the group session by asking open ended questions that encouraged group members to discuss their weekend and current mood state. Assisted group members in the review of their homework from previous group session.
--- NOTE | 2017-07-13 12:41 | BH.DS ---
Discharge Summary - Demographics Date of Admission:: 07/04/17 Discharge Date: 07/13/17 Presenting Problems at Admission:: Client presented at admission for worsening depression, anxiety and loss of social support. Client reported he was supposed [place] an [place] [facility] with his girlfriend, but out of nowhere client reported his girlfriend left him at the half-way. Client reported girlfriend was his only support and still homeless and has no supports. Client endorsed depressed mood with anhedonia, loss of concentration, irritability, apathy, and passive thoughts of . Discharge Diagnoses:: F 33.1 Major depressive disorder -rule out bipolar disorder/rule out psychotic disorder. PTSD. Anxiety unspecified. Cannabis use disorder. Nicotine use disorder Reason for Discharge:: Client attendance was inconsistent and missed two weeks in a row of intial psychiatric asessment with [facility] psychiatrist which resulted in needing to discharge client. - Treatment Progress During Treatment & Response: No progress observed given client only attended two days prior to being discharged. When client did attend he was disengaged at times with minimal verbal participation. Issues Still to be Addressed:: Client continues to struggle with depression, anxiety, emotional dysregulation, and inconsistent use of healthy coping skills. Client could benefit from learning healthy strategies and skills to help manage depressive and anxious symptoms. Client alsol could benefit from increasing awareness of warning signs and triggers for elevated emotions and identifying what skills would help him manage elevated emotions. Discharge Recommendations/Instructions:: Client recommeded to continue to follow up with his already established outpatient counselor and psychiatrist. Client encouraged once he is in a better place to attend [facility] on a consistent basis to return to [facility]. Discharge Handout: Complete Discharge Handout with client on aftercare options and continuity of care.
--- NOTE | 2017-07-16 15:03 | BH.SGPN_ITS ---
Service Group Progress Note - Session Psychotherapy Session #2 Date Open:: 07/09/17 Time Started:: 10:25 Time Stopped:: 11:15 Targeted Problem #:: 1 Type of Group:: Illness Management Goal of Group:: To increase understanding of pitfalls and impact can have on mental health. Client Response/Progress/Benefit:: Client contributed to discussion and listened attentively to others. Client stated that the ?right path? tends to be more challenging, but when you challenge yourself more learning occurs. Client connected with others that comfort zone as one barrier to trying something new or making a change. Client worked cooperatively with others during challenge activity, demonstrated leadership as evidenced by client providing direction for peers and being supportive. Client connected importance of communication in helping the group avoid the pitfalls during activity. Client seemed to benefit from increasing understanding of importance of having self-awareness of personal pitfalls. Eye Contact:: Fair Motor Activity:: Restless Appearance:: Casual Speech:: Appropriate Mood:: Anxious, Depressed Affect:: Constricted Thoughts:: Linear, No evidence of hallucinations/delusions noted Staff Interventions:: Therapist facilitated discussion about pitfalls and assisted group in identifying common pitfalls that can set you back. Therapist led group in an activity to help group understand impact pitfalls can have on oneself and identify strategies that could help you get back on the right path. Therapist provided support by using active listening and providing feedback. Psychotherapy Session #3 Date Open:: 07/09/17 Time Started:: 11:25 Time Stopped:: 12:15 Targeted Problem #:: 1 Type of Group:: Functional Skills Development Goal of Group:: To identify personal pitfalls and what keeps them stuck from moving forward. Client Response/Progress/Benefit:: Client alert and oriented, contributed to discussion and listened attentively to others. Client identified his personal pitfalls to be: negative self-talk, helping others too much, poor boundaries, toxic family, toxic friends, being stuck and spending too much money. Client identified negative self-talk and toxic relationships to be the most impactful personal pitfalls for himself. Client reported something he is willing to do today is focusing on getting himself better instead of putting others first. Client seemed to benefit from identifying one small step he is willing to take that will help him avoid pitfalls. Client to continue IOP level of care to increase mood stabilization, decrease depression and decrease anxiety. Eye Contact:: Fair Motor Activity:: Restless Appearance:: Casual Speech:: Appropriate Mood:: Anxious, Depressed Affect:: Constricted Thoughts:: Linear, Logical, No evidence of hallucinations/delusions noted Staff Interventions:: Therapist facilitated activity in which group members were given the task to identify personal pitfalls and what keeps them stuck from moving past the pitfall. Therapist provided group members with the homework assignment of identifying strategies that can help them overcome pitfalls.
--- NOTE | 2017-07-16 15:45 | BH.COMM_ITS ---
Communication Note - Communication with Client Communication Note: Pt did not show up to IOP session this AM. Has missed several sessions for various reasons. Therapist made pt aware that should he miss today's session and appointment with psychiatrist he would be discharged from the program. Pt agreed and was aware. Pt will be discharged. He is currently linked with psychiatry at [facility].
--- NOTE | 2017-07-30 13:59 | BH.DS_ITS ---
Discharge Summary - Demographics Date of Admission:: 07/04/17 Discharge Date: 07/13/17 Presenting Problems at Admission:: Client presented at admission for worsening depression, anxiety and loss of social support. Client reported he was supposed [place] an [place] [facility] with his girlfriend, but out of nowhere client reported his girlfriend left him at the intermediate. Client reported girlfriend was his only support and still homeless and has no supports. Client endorsed depressed mood with anhedonia, loss of concentration, irritability, apathy, and passive thoughts of . Discharge Diagnoses:: F 33.1 Major depressive disorder -rule out bipolar disorder/rule out psychotic disorder. PTSD. Anxiety unspecified. Cannabis use disorder. Nicotine use disorder Reason for Discharge:: Client attendance was inconsistent and missed two weeks in a row of intial psychiatric asessment with [facility] psychiatrist which resulted in needing to discharge client. - Treatment Progress During Treatment & Response: No progress observed given client only attended two days prior to being discharged. When client did attend he was disengaged at times with minimal verbal participation. Issues Still to be Addressed:: Client continues to struggle with depression, anxiety, emotional dysregulation, and inconsistent use of healthy coping skills. Client could benefit from learning healthy strategies and skills to help manage depressive and anxious symptoms. Client alsol could benefit from increasing awareness of warning signs and triggers for elevated emotions and identifying what skills would help him manage elevated emotions. Discharge Recommendations/Instructions:: Client recommeded to continue to follow up with his already established outpatient counselor and psychiatrist. Client encouraged once he is in a better place to attend [facility] on a consistent basis to return to [facility]. Discharge Handout: Complete Discharge Handout with client on aftercare options and continuity of care.
== END 2017-07-13 14:00 | disposition home or self-care (01) ==
LOC: BHIOP 09:00
PROVIDERS: Visit Provider Psychiatry & Neurology Psychiatry
DX: F33.1 Major depressive disorder, recurrent, moderate (principal); F43.10 Post-traumatic stress disorder, unspecified; F41.9 Anxiety disorder, unspecified; F12.20 Cannabis dependence, uncomplicated; F17.210 Nicotine dependence, cigarettes, uncomplicated
CPT/HCPCS: H2020

== ENCOUNTER 2017-07-11 06:51 | Emergency (ER) | payer MEDICAID, SELFPAY ==
--- NOTE | 2017-07-11 06:51 | DT_ITS ---
This patient was seen during an EMR downtime July 09, 2017 - July 16, 2017. This patient may have a combination of paper and electronic documentation or all paper documentation. All documentation is viewable within the e-chart portion of [facility] for each patient visit.
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
== END 2017-07-11 07:49 | disposition home or self-care (01) ==
LOC: ED 07-12 16:02
PROVIDERS: Emergency Provider Emergency Medicine
DX: S20.219A Contusion of unspecified front wall of thorax, initial encounter (principal); V89.2XXA Person injured in unspecified motor-vehicle accident, traffic, initial encounter; Y93.9 Activity, unspecified; Y92.9 Unspecified place or not applicable; R11.0 Nausea; F43.10 Post-traumatic stress disorder, unspecified; F17.200 Nicotine dependence, unspecified, uncomplicated; Z79.899 Other long term (current) drug therapy
CPT/HCPCS: 71046; 99282

== ENCOUNTER 2017-07-20 09:00 | Outpatient (RCR) | payer MEDICAID, SELFPAY ==
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
--- NOTE | 2017-07-20 13:06 | BH.DR.ITP ---
Initial Treatment Plan - Patient Information Visit Information: ADMISSION DATE: EXPECTED LOS: 4-6 weeks Diagnoses:: Depressive disorder F 33.1. PTSD - Problems/Symptoms Problem #1:: Mood symptoms Symptom:: Depression irritability, anhedonia, decreased energy, isolative behavior, passive thoughts of Problem #2:: Anxiety Symptom:: Rumination, intrusive traumatic memories, panic
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
--- NOTE | 2017-07-20 14:08 | BH.SGPN ---
Service Group Progress Note - Session Psychotherapy Session #1 Date Open:: 07/20/17 - 6 group members Time Started:: 09:05 Time Stopped:: 10:00 Targeted Problem #:: 1 Type of Group:: Process Goal of Group:: The goal of today's group was to check-in with client's mood, stressors, and positives and introduce topic for the day. Client Response/Progress/Benefit:: Client responded somewhat well to session, provided supportive statement to a peer, but declined to share during personal check in. Client shared advice to a fellow group member regarding maintaining sobriety. Client stated, you just have to keep telling yourself how bad it is. Client appeared to benefit from connecting with peers. Progress limited as it is client's first day back in IOP program. Eye Contact:: Fair Motor Activity:: Appropriate Appearance:: Casual Speech:: Appropriate Mood:: Depressed Affect:: Flat Thoughts:: Linear, Logical, No evidence of hallucinations/delusions noted Staff Interventions:: Therapist used open-ended questions to elicit information about client's current stressors and mood state. Therapist was supportive by using active listening and providing feedback.
[2017-07-20 14:47] VITALS: BP 110/72; PULSE 72; RESP 14
--- NOTE | 2017-07-24 08:19 | BH.SGPN_ITS ---
Service Group Progress Note - Session Psychotherapy Session #2 Date Open:: 07/20/17 Time Started:: 11:12 Time Stopped:: 12:03 Targeted Problem #:: 1 Type of Group:: Illness Management - 6 participants Goal of Group:: The goal of group was to increase understanding of the benefits social support provides in mental health wellness. Another goal was to increase self-awareness of the barriers that prevent client to seeking support or utilizing the support they have. Client Response/Progress/Benefit:: Client responded well to session and was willing to engage throughout. He took on a mostly passive participatory role during the discussion reviewing benefits of a strong support system and healthy communication with these supports; however, remained attentive as evidenced by client nodding head and maintaining eye contact. Client benefitted from the activity portion of session as he took on leadership role and challenged himself to take charge of communicating information crucial to his team?s success. Client displayed progress in his openness and patience when working with fellow participants. Recommended continued IOP tx to prevent decompensation and continue to promote use of emotion regulation skills. Eye Contact:: Good Motor Activity:: Appropriate Appearance:: Casual Speech:: Appropriate Mood:: Euthymic, Anxious Affect:: Congruent Thoughts:: Linear, Logical, No evidence of hallucinations/delusions noted Staff Interventions:: Therapist led a group discussion about importance of social supports. Therapist facilitated an activity that required the group members to utilize support from each other. Therapist utilized the activity as a tool to connect the importance of accepting social support. Therapist provided support through reflective listening and giving feedback.
--- NOTE | 2017-07-25 14:58 | BH.COMM ---
Communication Note - Communication with Client Communication Note: Client left during group 3 today without communicating to IOP providers. Client was quiet during group and his body language portrayed being guarded, but he did not appear to be experiencing any acute stressors or crisis. Client scheduled to attend IOP tomorrow 07/26/17.
--- NOTE | 2017-07-25 15:00 | BH.SGPN_ITS ---
Service Group Progress Note - Session Psychotherapy Session #2 Date Open:: 07/25/17 - 8 group members Time Started:: 10:18 Time Stopped:: 11:15 Targeted Problem #:: 1 Type of Group:: Illness Management Goal of Group:: To increase understanding of what conflict is and increase awareness of how group members manage conflict. Client Response/Progress/Benefit:: Client responded well to session, provided insight to quote then appeared to withdraw from discussion as evidenced by body language and lack of input. Client connected with the quote sharing, peace doesn?t mean there won?t ever be conflict it just means you learn to deal with it better. Client agreed with peers? definitions of conflict and the various types of conflict that can arise. Client shared he is mostly the accommodating type when dealing with conflict as client reports belief he does what others want him to do and digs himself in a hole. Client appeared to benefit from gaining awareness of how he manages conflict. Client has a history of anger outbursts and irritability and it appears client has low insight that he may be more aggressive, than accommodating, when faced with conflict. Progress noted as client has been consistent with attendance, but continues to struggle with emotional regulation. Eye Contact:: Poor Motor Activity:: Appropriate Appearance:: Disheveled Speech:: Soft Mood:: Irritable, Depressed Affect:: Flat Thoughts:: Linear, Logical, No evidence of hallucinations/delusions noted Staff Interventions:: Therapist facilitated discussion about conflict and conflict resolution. Therapist led group in an activity in which group members had to identify their initial response to conflict and how their response changes based on different situations. Therapist assisted clients with connecting the impact current conflict style has on their mental health.
--- NOTE | 2017-07-25 16:05 | BH.SGPN ---
Service Group Progress Note - Session Psychotherapy Session #1 Date Open:: 07/25/17 Time Started:: 09:05 Time Stopped:: 10:11 Targeted Problem #:: 1 Type of Group:: Process - 8 participants Goal of Group:: The goal of today's group was to check-in with clients and review homework from previous group session. Client Response/Progress/Benefit:: Client receptive of session and willing to maintain a passive respiratory role throughout. He appeared to follow along as fellow participants process with the group. This is evidenced by client nodding his head in maintaining inconsistent eye contact throughout. Client declined to process his own progress with the group at this time however appeared to benefit from the supportive environment. Client displaying limited progress however continues to maintain some level of engagement when in session recommended continued IOP in order to increase emotion regulation skills, distress tolerance, and prevent decompensation. Eye Contact:: Good Motor Activity:: Appropriate Appearance:: Casual Speech:: Other - client declined to provide input Mood:: Irritable, Depressed, Other Affect:: Constricted Thoughts:: No evidence of hallucinations/delusions noted Staff Interventions:: Therapist facilitated the group session by asking open ended questions that encouraged group members to discuss their weekend and current mood state. Assisted group members in the review of their homework from previous group session.
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
--- NOTE | 2017-07-26 11:32 | BH.COMM ---
Communication Note - Communication with Client Communication Note: Therapist spoke with client's outpatient therapist, Mike Castaneda, for continuity of care. IOP therapist shared with Mike client's current progress and treament plan. IOP therapist informed Mike of concerns about client demonstrating bipolar disorder symptoms as well as paranoia. Mike informed IOP therapist he will be leaving the counseling agency at the end of August. Discussed best way to inform client of Mike leaving and ensuring another therapist will be available to provide counseling for when iMke leaves the counseling center.
--- NOTE | 2017-07-26 11:48 | BH.COMM_ITS ---
Communication Note - Communication with Client Communication Note: Therapist spoke with client's outpatient therapist, Mike Castaneda, for continuity of care. IOP therapist shared with Mike client's current progress and treament plan. IOP therapist informed Mike of concerns about client demonstrating bipolar disorder symptoms as well as paranoia. Mike informed IOP therapist he will be leaving the counseling agency at the end of August. Discussed best way to inform client of Mike leaving and ensuring another therapist will be available to provide counseling for when Mike leaves the counseling center.
--- NOTE | 2017-07-26 12:26 | BH.MDN_ITS ---
Multi-Disciplinary Note - Note 30-min Individual Time Started:: 10:05 Date: 07/26/17 Purpose of session/treatment goals addressed:: Purpose of session was to assess current syptoms and stressors. Other topics included: identifying treatment goals and cognitive triangle. Eye Contact:: Fair Motor Activity:: Restless - Client was fidgety with legs and hands. Appearance:: Casual Speech:: Appropriate Mood:: Anxious, Depressed Affect:: Constricted Thoughts:: Linear, Logical Staff Interventions:: Therapist used open ended questions to elicit client's current stressors and symptoms. Therapist processed client's current stressors and emotions. Identified treatment goals while in IOP. Therapist provided psychoeducation about connection between thoughts, feelings, and behavior. Therpist assisted pt with identifying a current negative thought he has and challening the thought. Therapist provided client with homework to keep a thought log of his current negative and distorted thoughts. Client Response:: Client reported he is doing better compared to yesterday. Client shared he was feeling on edge yesterday, stuck in his negative thoughts and didn't know what to do besides leave group. Client agreeable that when he feels like he needs to leave group he will take a break from group and find a IOP therapist to talk to that is not running group at the time. Client apologized and reported he understands why leaving the group without letting anyone know what is going on is unhelpful to himself and concerns the IOP staff. Client shared he is continuing to have a hard time with enjoying the moment and being happy that things in his life are going a little better. Client reported everytime something good happens something bad follows. Client shared he is just on edge and anxiously waiting for the next bad thing to happen since things in his life are starting to get situated in a positive way. Client connected with the cognitive triangle, able to connect how his negative and distorted thoughts are contributing to unhelpful behavior and negative emotions. With help client able to reframe his distorted thought that something bad always follows after something good. Client could connect that if he reframes the thought his behavior and feelings would change for the better. Client agreeable to complete a thought record and bring back for next session. Client identified for treatment goals wanting to stablize mood, increase use of healthy coping, and decrease negative thoughts. Risks/Concerns:: Client denies current thoughts of suicide, plan or intention to date. Progress Toward Goals/Plan:: Client progress minimal given first week in IOP program. Focus of session was on identfiying treatment goals. Client struggling with negative thought patterns, distorted thinking, easily being irritable, and emotional dysregulation. Plan is to continue IOP level of care to stablize moods , decrease depressive symptoms and prevent decompensation. Time Stopped:: 10:32
--- NOTE | 2017-07-26 12:40 | BH.SGPN ---
Service Group Progress Note - Session Psychotherapy Session #2 Date Open:: 07/26/17 Time Started:: 10:07 Time Stopped:: 11:12 Type of Group:: Illness Management - 6 participants
--- NOTE | 2017-07-26 15:06 | BH.MTP ---
Master Treatment Plan - Patient Information Program Physician:: Dr. Frausto Primary Therapist:: Iwona Pope, [facility] - Psychiatric Diagnoses Psychiatric Diagnoses:: Major depressive disorder -rule out bipolar disorder/rule out psychotic disorder. PTSD. Anxiety unspecified. Cannabis use disorder. Nicotine use disorder Diagnosis Code(s):: F 33.1 - Estimated LOS Estimated LOS (in weeks):: 6 Problem/Goal #1 - Problem/Goal #1 Stated Goal:: Client will decrease depression, irritability, and suicidal ideation due to Major Depression Disorder through Intensive Outpatient Program. Description of Barriers: Client has hx of inconsistent attendance which has resulted in early discharge from [facility] in the past. Client's irritability, emotional dysregulation, distorted thought patterns and psychosocial stressors are additional potential barriers to treatment. Functional Impact: Client's mental health symptoms impact his ability to complete daily responsibilities and tasks. Client reports history of unable to keep a job for very long due to client being unable to manage his depression and anxiety which leads client to quitting. Client reports his relationships are also impacted negatively. Client not functioning at baseline and has frequent thoughts of . Goal Relevant Strengths/Supports: Client is resilient and reports motivation to get better. - Objectives Objective #1 Stated Objective: Identify and replace 3-4 negative thinking patterns that reinforce depressive symptoms. Interventions: Therapist will help client identify distorted thought patterns and replace those thoughts with rational messages. Therapist will provide psychoeducation about cognitive triangle and how thoughts, emotions and feelings are connected. Discharge Criteria: Client will have achieved this goal when can identify at least 3 negative thought patterns and replace those messages with rational messages. Target Date: 08/31/17 Review Date: 08/17/17 Objective #2 Stated Objective: Client will increase emotional regulation by identifying 3-4 healthy coping skills to manage intense emotions. Interventions: Therapist will help client identify triggers and warning signs that could result in high emotional response. Therapist will teach various healthy coping strategies to help manage elevated emotions. Discharge Criteria: Client will have met this goal when he can identify at least 3 healthy coping strategies to help manage elevated moods and utilize those skills on a consistent basis. Target Date: 08/31/17 Review Date: 08/17/17 Problem/Goal #2 - Problem/Goal #2 Stated Goal:: Stabilize anxiety level while increasing ability to function on daily basis. Description of Barriers: Client has hx of inconsistent attendance which has resulted in early discharge from [facility] in the past. Client's irritability, emotional dysregulation, distorted thought patterns and psychosocial stressors are additional potential barriers to treatment. Functional Impact: Client's mental health symptoms impact his ability to complete daily responsibilities and tasks. Client reports history of unable to keep a job for very long due to client being unable to manage his depression and anxiety which leads client to quitting. Client reports his paranoid thoughts impact his trust of others and decreases his self-esteem. Client reports his relationships are also impacted negatively. Client not functioning at baseline and has frequent thoughts of . Goal Relevant Strengths/Supports: Client is resilient and reports motivation to get better. - Objectives Objective #1 Stated Objective: Client will learn and implement 2-3 calming skills to reduce overall anxiety and manage anxiety symptoms. Interventions: Therapist will teach client calming/relaxation skills and how to apply these skills to everyday life. Discharge Criteria: Client will have achieved this goal when can verbalize at least 2 calming strategies and have practiced techniques to help reduce anxiety. Target Date: 08/31/17 Review Date: 08/17/17
--- NOTE | 2017-07-30 15:12 | BH.MTP_ITS ---
Master Treatment Plan - Patient Information Program Physician:: Dr. Frausto Primary Therapist:: Iwona Pope, [facility] - Psychiatric Diagnoses Psychiatric Diagnoses:: Major depressive disorder -rule out bipolar disorder/ rule out psychotic disorder. PTSD. Anxiety unspecified. Cannabis use disorder. Nicotine use disorder Diagnosis Code(s):: F 33.1 - Estimated LOS Estimated LOS (in weeks):: 6 Problem/Goal #1 - Problem/Goal #1 Stated Goal:: Client will decrease depression, irritability, and suicidal ideation due to Major Depression Disorder through Intensive Outpatient Program. Description of Barriers: Client has hx of inconsistent attendance which has resulted in early discharge from [facility] in the past. Client's irritability, emotional dysregulation, distorted thought patterns and psychosocial stressors are additional potential barriers to treatment. Functional Impact: Client's mental health symptoms impact his ability to complete daily responsibilities and tasks. Client reports history of unable to keep a job for very long due to client being unable to manage his depression and anxiety which leads client to quitting. Client reports his relationships are also impacted negatively. Client not functioning at baseline and has frequent thoughts of . Goal Relevant Strengths/Supports: Client is resilient and reports motivation to get better. - Objectives Objective #1 Stated Objective: Identify and replace 3-4 negative thinking patterns that reinforce depressive symptoms. Interventions: Therapist will help client identify distorted thought patterns and replace those thoughts with rational messages. Therapist will provide psychoeducation about cognitive triangle and how thoughts, emotions and feelings are connected. Discharge Criteria: Client will have achieved this goal when can identify at least 3 negative thought patterns and replace those messages with rational messages. Target Date: 08/31/17 Review Date: 08/17/17 Objective #2 Stated Objective: Client will increase emotional regulation by identifying 3-4 healthy coping skills to manage intense emotions. Interventions: Therapist will help client identify triggers and warning signs that could result in high emotional response. Therapist will teach various healthy coping strategies to help manage elevated emotions. Discharge Criteria: Client will have met this goal when he can identify at least 3 healthy coping strategies to help manage elevated moods and utilize those skills on a consistent basis. Target Date: 08/31/17 Review Date: 08/17/17 Problem/Goal #2 - Problem/Goal #2 Stated Goal:: Stabilize anxiety level while increasing ability to function on daily basis. Description of Barriers: Client has hx of inconsistent attendance which has resulted in early discharge from [facility] in the past. Client's irritability, emotional dysregulation, distorted thought patterns and psychosocial stressors are additional potential barriers to treatment. Functional Impact: Client's mental health symptoms impact his ability to complete daily responsibilities and tasks. Client reports history of unable to keep a job for very long due to client being unable to manage his depression and anxiety which leads client to quitting. Client reports his paranoid thoughts impact his trust of others and decreases his self-esteem. Client reports his relationships are also impacted negatively. Client not functioning at baseline and has frequent thoughts of . Goal Relevant Strengths/Supports: Client is resilient and reports motivation to get better. - Objectives Objective #1 Stated Objective: Client will learn and implement 2-3 calming skills to reduce overall anxiety and manage anxiety symptoms. Interventions: Therapist will teach client calming/relaxation skills and how to apply these skills to everyday life. Discharge Criteria: Client will have achieved this goal when can verbalize at least 2 calming strategies and have practiced techniques to help reduce anxiety. Target Date: 08/31/17 Review Date: 08/17/17
== END 2017-08-04 23:59 ==
LOC: BHIOP 09:00
PROVIDERS: Visit Provider Psychiatry & Neurology Psychiatry
DX: F33.1 Major depressive disorder, recurrent, moderate (principal); F43.10 Post-traumatic stress disorder, unspecified; F41.9 Anxiety disorder, unspecified; F12.20 Cannabis dependence, uncomplicated; F17.210 Nicotine dependence, cigarettes, uncomplicated
CPT/HCPCS: 90833; 99214; H0035; H2012; T1002; 90832; 90837